=== PATIENT | female | born 1990 | race Caucasian/White ===

== ENCOUNTER 2017-04-06 18:04 | Emergency (ER) | payer OTHER ==
[~2017-04-06] VITALS: Ht 172.7 cm; Wt 63.5 kg
[~2017-04-06 18:04] MED LIST: AMOX500 PO; CEPH500 PO; CLIN150 PO; IBUP800 PO; METO10 PO; OXYACE5T PO; PENVK500 PO; PHENA200 PO; SULTRIDS PO; TRAM50 PO
[2017-04-06 20:04] LABS: Source, Urine Clean Catch
[2017-04-06 20:09] LABS: Bilirubin, Urine Neg (Neg); Blood, Urine 5+ (Neg); Glucose Qualitative, Urine Neg (Neg); Ketones, Urine Neg (Neg); Leukocyte Esterase, Urine 2+ (Neg); Nitrite, Urine Neg (Neg); Protein, Urine 1+ (Neg); Specific Gravity, Urine 1.025 (1.003-1.022); Urobilinogen, Urine 1+ (Normal)
[2017-04-06 20:16] LABS: Appearance, Urine Clear (Clear); Color, Urine Yellow (P-Yellow)
[2017-04-06 20:18] LABS: Bacteria Few /hpf; Squamous Epithelial Cells Few /hpf (Few); White Blood Cells, Urine 50-100 /hpf (0-5)
[2017-04-06] MEDS ORDERED: Pyridium100 MG PO (20:45)
[2017-04-06] MEDS ORDERED: CEPH500 PO (20:45)
== END 2017-04-06 21:05 | disposition home or self-care (01) ==
LOC: ER 18:04
PROVIDERS: Physician Assistant
DX: N12 Tubulo-interstitial nephritis, not specified as acute or chronic (principal)
CPT/HCPCS: 81001; 87086; 99283